=== PATIENT | female | born 1970 | race African-American/Black ===

== ENCOUNTER 2024-10-08 18:07 | Emergency (ER) | payer MEDICAID, SELFPAY ==
[2024-10-08 18:08] VITALS: BP 222/114; PULSE 113; RESP 20; TEMP 36.7; O2SAT 96
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
--- NOTE | 2024-10-08 18:30 | RT.EKG_ITS ---
APPROVED REPORT Exam: Resting ECG Reason for Exam: chest pain Patient Location: E HR:85 bpm ECG Measurements Heart Rate 85 AXIS WA 142 P 59 QRSd 85 QRS 13 QT 363 T 42 QTc 431 Conclusion Sinus rhythm 85 normal axis no stemi
[2024-10-08 18:57] VITALS: BP 222/114; PULSE 113; RESP 20; TEMP 36.7; O2SAT 96
[2024-10-08 19:04] VITALS: BP 203/73; PULSE 89
[2024-10-08 19:05] LABS: Lactate 1.1 mmol/L (0.6-1.4)
[2024-10-08 19:06] LABS: Abs Immature Grans 0.02 10^3/uL (0.0-0.06); Absolute Basophil Count 0.03 10^3/uL (0.0-0.2); Absolute Eosinophil Count 0.14 10^3/uL (0.0-0.7); Absolute Lymphocyte Count 2.22 10^3/uL (1.2-3.4); Absolute Neutrophil Count 6.03 10^3/uL (1.2-6.7); Basophils % 0.3 %; Eosinophils % 1.5 %; HCT 43.2 % (36.0-46.0); HGB 14.3 g/dL (11.2-15.7); Immature Grans % 0.2 %; Lymphocytes % 24.3 %; MCH 29.7 pg (27.0-33.0); MCHC 33.1 % (32.0-36.0); MCV 90 fL (80-95); MPV 9.9 fL (8.0-11.0); Monocytes % 7.7 %; Platelet Count 406 10^3/uL (130-400); RBC 4.82 10^6/uL (3.93-5.22); RDW 12.6 % (11.7-14.6); RDW-SD 41.9 fL; WBC 9.14 10^3/uL (4.4-10.8)
[2024-10-08 19:26] LABS: ALT 13 U/L (14-59); AST 13 U/L (15-37); Albumin 3.9 g/dL (3.4-5.0); Alkaline Phosphatase 106 U/L (46-116); BUN 16 mg/dL (7-18); Bilirubin, Total 0.12 mg/dL (0.2-1.0); CREATININE 0.9 mg/dL (0.55-1.02); Calcium 8.9 mg/dL (8.5-10.1); Chloride 106 mmol/L (98-107); Glucose 98 mg/dL (74-106); Potassium 4.1 mmol/L (3.5-5.1); Sodium 144 mmol/L (136-145); Total Protein 7.4 g/dL (6.4-8.2)
[2024-10-08 19:27] LABS: Troponin I 8 ng/L (<or=51)
[2024-10-08 19:29] LABS: COVID-19 PCR Negative (Negative); Influenza A PCR Negative (Negative); Influenza B PCR Negative (Negative); RSV PCR Negative (Negative)
[2024-10-08 19:30] LABS: Source NASOPHARYNX
[2024-10-08 19:32] LABS: D-Dimer 335 ng/mlFEU (<500)
[2024-10-08 19:35] VITALS: PULSE 89; O2SAT 98
[2024-10-08 19:37] VITALS: BP 196/80; PULSE 80; PULSE 94; RESP 14; O2SAT 98
== END 2024-10-08 20:12 | disposition left against medical advice (07) ==
PROVIDERS: Emergency Provider Physician Assistant
DX: R07.81 Pleurodynia (principal); F17.210 Nicotine dependence, cigarettes, uncomplicated
CPT/HCPCS: 36415; 80053; 87637; 93005; 99284; 83605; 84484; 85025; 85379; 93010